=== PATIENT | male | born 1970 | race Caucasian/White ===

== ENCOUNTER 2017-01-03 14:25 | Emergency (ER) | payer OTHER ==
[2017-01-03] MEDS ORDERED: KETOROLAC 30 MG/1 ML SDV IVP ONE (14:32)
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
[2017-01-03] MEDS ORDERED: IOPAMIDOL (ISOVUE-300) 100 ML BTL IV ONE ×2 (14:43→14:59)
[2017-01-03 16:09] VITALS: BP 121/71; PULSE 70; RESP 20; TEMP 98.2; O2SAT 95
== END 2017-01-03 16:00 | disposition home or self-care (01) ==
LOC: EDUNIT#
DX: S22.080A Wedge compression fracture of T11-T12 vertebra, initial encounter for closed fracture (principal); S29.019A Strain of muscle and tendon of unspecified wall of thorax, initial encounter; F17.210 Nicotine dependence, cigarettes, uncomplicated; V00.321A Fall from snow-skis, initial encounter; Y93.23 Activity, snow (alpine) (downhill) skiing, snowboarding, sledding, tobogganing and snow tubing
CPT/HCPCS: 82947-QW; 96374; J1885; Q9967